=== PATIENT | male | born 1945 | race Caucasian/White ===

== ENCOUNTER 2020-04-21 13:15 | Emergency (ER) | payer SELFPAY ==
[2020-04-21] MEDS: MORPHINE SULFATE INJ 10 MG/ML VIAL IV ONE (13:56)
[2020-04-21] MEDS: SODIUM CHLORIDE 0.9% 1000ML 1,000 ML IVS PRN (13:56)
[2020-04-21] MEDS: ONDANSETRON INJ 4 MG/2 ML VIAL IV ONE (13:56)
[2020-04-21] MEDS: SODIUM CHLORIDE 0.9% (FLUSH) 10 ML SYG IV PRN (13:57)
[2020-04-21] MEDS ORDERED: MORPHINE SULFATE INJ 10 MG/ML VIAL ONE (14:15)
--- NOTE | 2020-04-21 14:21 | ED.PDOC ---
History of Present Illness - General Chief Complaint: Trauma Time Seen by Provider: 04/21/20 13:38 Source: patient, RN notes reviewed, Vital Signs reviewed, family Exam Limitations: no limitations - History of Present Illness Initial Comments: This is a 74-year-old male with history of A. fib, on Eliquis, presenting to the emergency department after he tripped and fell down 2 stairs just prior to arriv al. EMS was called to the scene, but patient refused transport. He denies any loss of consciousness, headache, neck pain. He is reporting significant pain to the left humerus and left shoulder area. No numbness/tingling. He denies any abdominal pain or back pain. He was able to ambulate after the fall. Allergies/Adverse Reactions: Allergies NO KNOWN ALLERGY Allergy (Verified 04/21/20 14:51) Home Medications: Ambulatory Orders Methocarbamol [Robaxin] 750 mg PO Q6H PRN #30 tab 04/21/20 RX: HYDROcodone 7.5MG/APAP 325MG [[place] 7.5/325] 1 - 2 ea PO Q6H PRN #20 tab 04/21/20 Review of Systems - Review of Systems Constitutional: Denies: chills, fever EENTM: Denies: ear pain, nose pain, nose congestion, throat pain, mouth pain Respiratory: Denies: cough, orthopnea, short of breath, wheezing Cardiology: Denies: chest pain, edema Gastrointestinal/Abdominal: Denies: abdominal pain, diarrhea, nausea, vomiting Genitourinary: Denies: dysuria, hematuria Musculoskeletal: States: joint pain. Denies: back pain, muscle stiffness, neck pain Skin: Denies: lesions, rash Neurological: Denies: headache, paresthesia, tingling, weakness Endocrine: States: no symptoms reported Hematologic/Lymphatic: States: no symptoms reported Family Medical History - Family History Father Family History: No Known Physical Exam - Physical Exam General Appearance: Alert, Well Developed, Well Groomed, Well Hydrated, Well Nourished, Other - Appears uncomfortable Head Injury: no evidence of injury, Fu's Sign ENT Exam: no evidence of ENT injury, no dental injury, other - Superficial abrasion to the right maxillary area, no TMJ or ZMC tenderness Neck Exam: non-tender, full range of motion, normal alignment, normal inspection Cardiovascular/Respiratory: regular rate, rhythm, no M/R/G, normal peripheral pulses Gastrointestinal/Abdominal: non tender, soft Back Exam: normal inspection, no CVA tenderness, no vertebral tenderness Extremity Exam: pelvis stable, pain with movement, tenderness - Left shoulder, left distal humerus Skin Exam: normal color, warm/dry - Alejandra Coma Score Best Eye Response (Alejandra): (4) open spontaneously Best Verbal Response (Alejandra): (5) oriented Best Motor Response (Alejandra): (6) obeys commands Progress - Progress Progress: 04/21/20 17:[address]/x-ray findings. Discussed need for conscious sedation for reduction of the left shoulder. Patient and family agree with plan.Abdomen remains benign. 04/21/20 17:55 Rechecked after ketamine. Patient more awake, alert, but still somewhat sedated. He is able to answer questions appropriately. Sats normal, no respiratory distress, no vomiting post sedation. We will continue to monitor. 04/21/20 18:25 Patient awake, alert, no respiratory distress, sats 93 to 95%. Pain well controlled. Patient has a sober ride to take him home. Will discharge home. Strict warnings given to return the emergency room for severe headache, vomiting, changes mental status, any further injuries and need evaluation, or any other concerns. DDX: ICH, fx, dislocation MDM: Patient with history of A. fib on Eliquis presenting with left shoulder and humerus pain after fall. CT head/C-spine are negative. He did have a left shoulder dislocation that was fairly difficult to reduce and required 2 separate moderate sedation procedures. Initial sedation with etomidate was too short- lived and did cause a very brief apneic episode lasting approximately 5 seconds without any complications. I proceeded to switch to ketamine for sedation due to need for longer procedure time and less respiratory depression. There were no complications after the ketamine and I was able to reduce the shoulder without incident. Repeat x-ray was negative. Recommended follow-up with orthopedics in 3 to 5 days for recheck. Strict warnings given to return the emergency room for worsening pain, intractable vomiting, fever, chest pain, or other concerns peer Bulmaro Chavez DO [facility] #[id number] - Results/Orders Results/Orders: EKG reviewed personally by me at 1348. Sinus rhythm, rate of 69, left axis, short AR interval at [address] segment elevations or depressions EXAM: CT of the Head Without Contrast EXAM: CT of the Cervical Spine Without Contrast HISTORY: fall down stairs, on eliquis. TECHNIQUE: CT of the head was performed without contrast. CT of the cervical spine was performed. Sagittal and coronal reformats were performed. CT was performed using one or more of the following dose reduction techniques: Automated exposure control, adjustment of the mA and/or kV according to patient size, and/or use of iterative reconstruction technique. COMPARISON: None. FINDINGS: HEAD CT: Parenchyma: No mass, acute hemorrhage or CT evidence of large acute vascular territory insult. Mild periventricular and deep white matter hypodensities are likely due to chronic small vessel ischemic changes. Ventricles: Normal in size and configuration. No hydrocephalus. Extra-axial spaces: An oval 4 x 1.6 cm extra-axial mass lateral to the right frontal lobe (image 41 series 5) may be a meningioma. No adjacent edema. No acute hemorrhage. Dural sinuses: No abnormal densities. Paranasal sinuses/Mastoid air cells: No fluid level. Scalp/Skull: Moderate soft tissue edema in the right premaxillary soft tissues.Tiny radiopaque foreign body or vascular calcification in the superficial soft tissues in this region. CERVICAL SPINE CT: Craniocervical junction: Maintained. No fracture. Alignment: Reversal of normal cervical lordosis. No traumatic subluxation. Soft tissues: No abnormalities. Vertebrae/bones: Body heights maintained. No acute fracture. Degenerative changes: Mild/moderate multilevel disc degeneration the mid to lower cervical spine. Mild lower facet arthropathy. No significant spinal canal stenosis. IMPRESSION: Head CT: 1. No acute intracranial abnormality. 2. Right premaxillary soft tissue contusion. Tiny vascular calcification or radiopaque foreign body in the superficial soft tissues. 3. Oval 4.6 x 1.6 cm extra-axial mass anterior to the right frontal lobe, likely a meningioma. A nonemergent MRI of the brain without and with contrast can be obtained for further assessment. Cervical CT: No acute fracture or subluxation. Electronically signed by: Cristobal Mathias MD 04/21/2020 3:35 PM EXAM DESCRIPTION: Shoulder,Left 2 or More Views CLINICAL HISTORY: 74 years Male, fall down stairs COMPARISON: None. FINDINGS: There is anterior dislocation of the left glenohumeral joint. No fractures are identified. IMPRESSION: 1. Anterior dislocation of the glenohumeral joint. Electronically signed by: Magen Franklin MD 04/21/2020 3:20 PM CDT EXAM DESCRIPTION: Humerus,Left CLINICAL HISTORY: 74 years Male, fall down stairs COMPARISON: None. FINDINGS: There is anterior dislocation of the glenohumeral joint. No acute fractures are identified. IMPRESSION: 1. Anterior dislocation of the glenohumeral joint. Electronically signed by: Magen Franklin MD 04/21/2020 3:18 PM CDT EXAM DESCRIPTION: Chest,1 View CLINICAL HISTORY: 74 years Male, fall down stairs COMPARISON: None. FINDINGS: There is mild cardiomegaly. The lung alexandra are remarkable for moderately severe left basilar atelectasis.. The pulmonary vascularity is unremarkable. No active pleural disease is present. There is mild elevation of left hemidiaphragm. There is anterior dislocation of the left glenohumeral joint. IMPRESSION: 1. Anterior dislocation of the left glenohumeral joint. 2. Mild elevation left hemidiaphragm with moderate severe left basilar atelectasis. 3. Mild cardiomegaly. Electronically signed by: Magen Franklin MD 04/21/2020 3:19 PM CDT Laboratory Results - last 24 hr 04/21/20 04/21/20 04/21/20 13:58 13:58 13:58 WBC 7.3 RBC 4.43 L Hgb 13.4 L Hct 39.8 L MCV 90.0 MCH 30.3 MCHC 33.7 RDW 13.6 Plt Count 250 MPV 7.5 Absolute Neuts (auto) 3.90 Absolute Lymphs (auto) 2.40 Absolute Monos (auto) 0.60 Absolute Eos (auto) 0.30 Absolute Basos (auto) 0.00 Neutrophils % 53.3 Lymphocytes % 33.4 Monocytes % 8.7 Eosinophils % 4.0 Basophils % 0.6 PT 10.4 INR 1.05 PTT (SP) 27.6 Sodium 139 Potassium 4.3 Chloride 104 Carbon Dioxide 25 Anion Gap 14.3 BUN 26 H Creatinine 1.17 BUN/Creatinine Ratio 22.2 H Random Glucose 125 H Serum Osmolality 283.8 Calcium 8.9 Total Bilirubin 0.5 AST 16 ALT 19 Alkaline Phosphatase 64 Serum Total Protein 7.4 Albumin 3.9 Globulin 3.5 Albumin/Globulin Ratio 1.1 Ethyl Alcohol 04/21/20 13:58 WBC RBC Hgb Hct MCV MCH MCHC RDW Plt Count MPV Absolute Neuts (auto) Absolute Lymphs (auto) Absolute Monos (auto) Absolute Eos (auto) Absolute Basos (auto) Neutrophils % Lymphocytes % Monocytes % Eosinophils % Basophils % PT INR PTT (SP) Sodium Potassium Chloride Carbon Dioxide Anion Gap BUN Creatinine BUN/Creatinine Ratio Random Glucose Serum Osmolality Calcium Total Bilirubin AST ALT Alkaline Phosphatase Serum Total Protein Albumin Globulin Albumin/Globulin Ratio Ethyl Alcohol < 5.40 Procedures - Joint Reduction left shoulder Conscious Sedation: Yes Reduction Attempts: 2 - Initially attempted Milch technique, followed by traction countertraction, unsuccessfully. On second attempt at sedation with ketamine, I attempted modified Milch technique as well as traction countertraction with successful reduction of the shoulder. Pre-Procedure NV Exam: Yes - 2+ radial pulses, cap refill less than 2 seconds, s ensation normal Post Joint Reduction Film: joint reduced Progress: Timeout was called prior to each attempted sedation. Patient was kept on continuous pulse ox, cardiac monitoring, as well as Capnography. He was kept on a nonrebreather throughout the procedure. After the etomidate, he had a brief 3 to 5-second episode of apnea that resolved spontaneously without any intervention. This is likely related to his chronic MAKAYLA. He had no episodes while on ketamine. Mallampati score II, ASA 2.The reduction itself was fairly difficult. I made 2 attempts while under etomidate using Milch technique as well as traction countertraction unsuccessfully. He began to wake up during the traction countertraction portion, so I abandoned etomidate due to brief respiratory depression and proceeded to sedate again after etomidate had worn off with ketamine. This provided much better sedation without any respiratory depression. I again attempted a modified Milch technique as well as traction countertraction with successful reduction of the shoulder. Postreduction film improved. Departure - Departure Clinical Impression: Fall down stairs, Closed head injury without loss of consciousness, Facial contusion, Dislocation of left shoulder joint, Chronic anticoagulation Time of Disposition: 18:26 Disposition: Discharge to Home or Self Care Condition: Fair Departure Forms: ED Discharge - Pt. Copy, Patient Portal Self Enrollment Instructions: DI for Trauma, Shoulder Dislocation (DC), How to Use a Shoulder Sling, Moderate Sedation in Adults (DC) Diet: resume usual diet Activity: no pushing/pulling with affected limb Referrals: Darnell Cabrales MD [Active Staff] - 1-5 Days UNKNOWN,PHYSICIAN [Primary Care Provider] - 1-5 Days Prescriptions: RX: HYDROcodone 7.5MG/APAP 325MG [[place] 7.5/325] 1 - 2 ea PO Q6H PRN #20 tab PRN Reason: Moderate To Severe Pain Methocarbamol [Robaxin] 750 mg PO Q6H PRN #30 tab PRN Reason: Muscle Spasms Home Medications: Ambulatory Orders Methocarbamol [Robaxin] 750 mg PO Q6H PRN #30 tab 04/21/20 RX: HYDROcodone 7.5MG/APAP 325MG [[place] 7.5/325] 1 - 2 ea PO Q6H PRN #20 tab 04/21/20 Additional Instructions: Wear sling as much as possible during the day and while asleep. Remove the sling at least 3-4 times daily and perform mild range of motion exercises. Take a stool softener daily while taking pain medication. Your pain medication may make you tired or impair your judgment, as well as increase your risk for falls. Do not drive, operate machinery, operate power tools, watch children, or perform any tasks that require her to be awake and alert while taking the pain medication.
--- NOTE | 2020-04-21 15:19 | RAD ---
EXAM DESCRIPTION: Humerus,Left CLINICAL HISTORY: 74 years Male, fall down stairs COMPARISON: None. FINDINGS: There is anterior dislocation of the glenohumeral joint. No acute fractures are identified. IMPRESSION: 1. Anterior dislocation of the glenohumeral joint. Electronically signed by: Magen Franklin MD 04/21/2020 3:18 PM CDT
--- NOTE | 2020-04-21 15:21 | RAD ---
EXAM DESCRIPTION: Chest,1 View CLINICAL HISTORY: 74 years Male, fall down stairs COMPARISON: None. FINDINGS: There is mild cardiomegaly. The lung alexandra are remarkable for moderately severe left basilar atelectasis.. The pulmonary vascularity is unremarkable. No active pleural disease is present. There is mild elevation of left hemidiaphragm. There is anterior dislocation of the left glenohumeral joint. IMPRESSION: 1. Anterior dislocation of the left glenohumeral joint. 2. Mild elevation left hemidiaphragm with moderate severe left basilar atelectasis. 3. Mild cardiomegaly. Electronically signed by: Magen Franklin MD 04/21/2020 3:19 PM CDT
--- NOTE | 2020-04-21 15:22 | RAD ---
EXAM DESCRIPTION: Shoulder,Left 2 or More Views CLINICAL HISTORY: 74 years Male, fall down stairs COMPARISON: None. FINDINGS: There is anterior dislocation of the left glenohumeral joint. No fractures are identified. IMPRESSION: 1. Anterior dislocation of the glenohumeral joint. Electronically signed by: Magen Franklin MD 04/21/2020 3:20 PM CDT
--- NOTE | 2020-04-21 15:36 | CT ---
EXAM: CT of the Head Without Contrast EXAM: CT of the Cervical Spine Without Contrast HISTORY: fall down stairs, on eliquis. TECHNIQUE: CT of the head was performed without contrast. CT of the cervical spine was performed. Sagittal and coronal reformats were performed. CT was performed using one or more of the following dose reduction techniques: Automated exposure control, adjustment of the mA and/or kV according to patient size, and/or use of iterative reconstruction technique. COMPARISON: None. FINDINGS: HEAD CT: Parenchyma: No mass, acute hemorrhage or CT evidence of large acute vascular territory insult. Mild periventricular and deep white matter hypodensities are likely due to chronic small vessel ischemic changes. Ventricles: Normal in size and configuration. No hydrocephalus. Extra-axial spaces: An oval 4 x 1.6 cm extra-axial mass lateral to the right frontal lobe (image 41 series 5) may be a meningioma. No adjacent edema. No acute hemorrhage. Dural sinuses: No abnormal densities. Paranasal sinuses/Mastoid air cells: No fluid level. Scalp/Skull: Moderate soft tissue edema in the right premaxillary soft tissues.Tiny radiopaque foreign body or vascular calcification in the superficial soft tissues in this region. CERVICAL SPINE CT: Craniocervical junction: Maintained. No fracture. Alignment: Reversal of normal cervical lordosis. No traumatic subluxation. Soft tissues: No abnormalities. Vertebrae/bones: Body heights maintained. No acute fracture. Degenerative changes: Mild/moderate multilevel disc degeneration the mid to lower cervical spine. Mild lower facet arthropathy. No significant spinal canal stenosis. IMPRESSION: Head CT: 1. No acute intracranial abnormality. 2. Right premaxillary soft tissue contusion. Tiny vascular calcification or radiopaque foreign body in the superficial soft tissues. 3. Oval 4.6 x 1.6 cm extra-axial mass anterior to the right frontal lobe, likely a meningioma. A nonemergent MRI of the brain without and with contrast can be obtained for further assessment. Cervical CT: No acute fracture or subluxation. Electronically signed by: Cristobal Mathias MD 04/21/2020 3:35 PM CDT
[2020-04-21] MEDS: ETOMIDATE INJECTION 2 MG/ML 20ML VIAL IV ONE (16:05)
[2020-04-21] MEDS: fentaNYL CITRATE INJ 50 MCG/ML AMP IV ONE (16:08)
[2020-04-21] MEDS: KETAMINE HCL 100 MG/ML VIAL IV ONE (17:04)
--- NOTE | 2020-04-21 17:22 | RAD ---
EXAM: XR Left Shoulder Complete, 2 or More Views CLINICAL HISTORY: The patient is 74 years old and is Male; post reduction TECHNIQUE: Single view of the left shoulder. COMPARISON: April 21, 2020 2:48 PM. FINDINGS: Bones/joints: Glenohumeral joint dislocation appears reduced. No acute fracture. Soft tissues: Unremarkable. IMPRESSION: Glenohumeral joint dislocation appears reduced. Confirmation with Y view suggested. Electronically signed by: Nury Mercer MD 04/21/2020 5:21 PM CDT
[2020-04-21 18:26] VITALS: TEMP 97.9; O2SAT 91
[2020-04-21 19:39] VITALS: BP 126/75
== END 2020-04-21 19:39 | disposition home or self-care (01) ==
LOC: ER 13:15
DX: S43.005A Unspecified dislocation of left shoulder joint, initial encounter (principal); S00.83XA Contusion of other part of head, initial encounter; S09.90XA Unspecified injury of head, initial encounter; I48.91 Unspecified atrial fibrillation; Z79.01 Long term (current) use of anticoagulants; W10.9XXA Fall (on) (from) unspecified stairs and steps, initial encounter; Y92.9 Unspecified place or not applicable
CPT/HCPCS: 36415; 70450; 71045; 72125; 73030; 73060; 80053; 80320; 85025; 85610; 85730; 93005; J2270; J2405; J3010; J7030